=== PATIENT | male | born 1960 | race Caucasian/White ===

== ENCOUNTER 2019-01-10 22:30 | Observation (INO) | payer MEDICAID, SELFPAY ==
[2019-01-10 22:30] VITALS: BP 128/71; PULSE 97; RESP 18; TEMP 37.2; O2SAT 97; BMI 19.2
--- NOTE | 2019-01-10 23:35 | ED.VIS.GEN ---
History of Present Illness Chief Complaint: Abd Pain Narrative: This patient is a 58-year-old male who presents with abdominal pain. He has a history of Crohn's disease and prior bowel resections, appendectomy. His last surgery was in 2015. After that he states he was well controlled on Humira. However he had moved and has now been off of Humira since June. He complains of severe right sided abdominal pain for the past month. He was seen at an outside hospital 5 days ago and had a CT which showed intussusception. Transfer was recommended. However he had no one to take care of his cat so signed out AGAINST MEDICAL ADVICE. He complains of ongoing pain. He has chronic diarrhea which he states is been worse. He reports nausea without vomiting. He denies fevers. Past Medical History - Allergies and Home Meds Allergies/Adverse Reactions: Allergies acetaminophen [From Tylenol] Allergy (Verified 01/10/19 22:34) Other aspirin [ASA] Allergy (Verified 01/10/19 22:34) Nausea azathioprine [From Imuran] Allergy (Verified 01/10/19 22:34) Other azathioprine sodium [From Imuran] Allergy (Verified 01/10/19 22:34) Other Sulfa (Sulfonamide Antibiotics) Allergy (Verified 01/10/19 22:34) Rash Primary Care Physician: Care Physician,No Primary [NON-STAFF] - Past Medical History: - - Crohn's disease, bipolar Surgical History: appendectomy, - - Bowel resections Smoking Status: Current every day smoker Review of Systems All systems negative except as indicated General: Denies: Fever Cardiovascular: Denies: Chest pain Respiratory: Denies: Dyspnea Gastrointestinal: Reports: Abdominal pain, Nausea, Diarrhea Physical Exam Vital Signs/Narrative: Vital Signs Temp Pulse Resp BP Pulse Ox 01/10/19 22:30 98.9 F 97 18 128/71 H 97 General: Well nourished Head: Normocephalic Eyes: EOMI ENT: Moist mucous membranes Neck: Supple Cardiovascular: Regular rate, Regular rhythm Respiratory: No distress, CTA bilaterally Abdomen: Soft, - - Patient has diffuse abdominal tenderness which is worse in the mid right abdomen he has no guarding has no rebound Skin: Normal color Neurological: Alert Psychological: Normal affect Diagnostic/Tx/Re-eval Impressions Abdomen/Pelvis CT 01/11/19 23:34 IMPRESSION: Inflammation of small bowel prior to the ileocolic anastomosis in the right abdomen likely Crohn's exacerbation. There is some segment off target sign which may be the previously reported intussusception, however this can also be seen with substantial inflammation. Rectosigmoid inflammation/colitis/proctitis suspected. There is no abscess, collection, perforation or obstruction. Other nonacute findings as outlined above. Electronically Signed: Christiana Esposito MD at 2:31 EDT , Service support , 01/11/19 23:34 Abdomen/Pelvis WITH Contrast [CT] Stat Laboratory Results 01/10/19 01/10/19 23:53 23:53 WBC 6.8 RBC 4.46 L Hgb 12.9 L Hct 38.2 L MCV 85.7 MCH 28.9 MCHC 33.8 RDW 13.5 RDW Differential 41.5 Plt Count 298 MPV 9.0 Immature Gran % (Auto) 0.100 Neut % (Auto) 52.8 Lymph % (Auto) 32.9 [place]ack[place]ord % (Auto) 12.4 H Eos % (Auto) 1.2 Baso % (Auto) 0.6 Absolute Neuts (auto) 3.6 Absolute Lymphs (auto) 2.23 Total Counted Not Reportable Sodium 140 Potassium 3.3 L Chloride 106 Carbon Dioxide 28.0 Anion Gap 6 BUN 10 Creatinine 0.84 Estim Creat Clear Calc 81.90 Est GFR (MDRD) Af Amer 121 Est GFR (MDRD) Non-Af 100 BUN/Creatinine Ratio 11.8 Glucose 111 H Calcium 8.5 Total Bilirubin 0.20 AST 15 ALT 25 Alkaline Phosphatase 94 Total Protein 6.8 Albumin 2.9 L Globulin 3.9 Albumin/Globulin Ratio 0.7 L Lipase 76 - Medical Decision Making Patient was treated with IV fluids, Dilaudid, Zofran. He is resting comfortably on reevaluation. Laboratory studies are essentially unremarkable. CT of the abdomen and pelvis does show the above findings consistent with Crohn's exacerbation. CT was read as possible intussusception but findings and also just be seen with significant inflammation. I did speak to Dr. Rosas, general surgery on-call who agrees this does not appear to be an acute surgical issue. Patient was given IV Solu-Medrol and Zosyn and will be discussed with hospitalist for admission. ED Disposition - Plan for ED Patient: Disposition: [facility] Diagnosis: Exacerbation of Crohn's disease Referrals: Care Physician,No Primary [NON-STAFF] -
[2019-01-10] MEDS: HYDROmorphone 1 MG/ML Syringe IV (23:53)
[2019-01-10] MEDS: Ondansetron 4 MG/2 ML Vial IV (23:53)
[2019-01-10] MEDS: 0.9% Normal Saline 1,000 ML 1000 ML IV (23:53)
[2019-01-11 00:05] LABS: Absolute Lymphocyte Count 2.23 X10^3/ul (0.83-4.51); Absolute Neutrophil Count 3.6 X10^3/uL (2.0-7.7); Basophil# 0.04 X10^3/uL; Basophil% 0.6 % (0-1); Eosinophil# 0.08 X10^3/uL; Eosinophils% 1.2 % (0-5); Hematocrit 38.2 % (40-54); Hemoglobin 12.9 g/dl (13.0-16.5); Lymphocyte # 2.23 X10^3/ul (4.0); Lymphocyte % 32.9 % (19-41); Mean Corp Hgb Conc 33.8 g/gl (32-36); Mean Corpuscular Hgb 28.9 pg (27.0-32.0); Mean Corpuscular Volume 85.7 fL (80-94); Monocyte# 0.84 X10^3/uL; Monocyte% 12.4 % (0-10); Neutrophil # 3.58 X10^3/uL (2.7-7.7); Neutrophil % 52.8 % (47-70); Platelet Count 298 K/mm3 (150-450); RBC Distribution Width CV 13.5 % (11.6-14.6); RBC Distribution Width SD 41.5 fl (35.1-43.9); Red Blood Count 4.46 M/mm3 (4.6-6.2); White Blood Count 6.8 K/mm3 (4.4-11.0)
[2019-01-11 00:06] LABS: POSITIVE COUNT NO; POSITIVE DIFFERENTIAL NO; POSITIVE MORPHOLOGY NO
[2019-01-11 00:24] LABS: ALB/GLOB Ratio 0.7 RATIO (0.9-2.4); AST(SGOT) 15 U/L (15-37); Alanine Aminotransfer ALT/SGPT 25 U/L (16-61); Albumin, Serum 2.9 g/dL (3.2-5.0); Alkaline Phosphatase 94 U/L (45-117); Anion Gap 6 (5-15); BUN 10 mg/dL (7-18); BUN/Creat Ratio 11.8 RATIO (10-20); Calcium,Total 8.5 mg/dL (8.5-10.1); Chloride 106 mmol/L (98-107); Creatinine, Serum 0.84 mg/dL (0.70-1.30); EST Glomerular Filtration Rate 100 mL/min (>60); Est Glom Filt Rate - Afr Amer 121 mL/min (>60); Globulin 3.9 g/dL (2.2-4.2); Glucose 111 mg/dL (74-106); Lipase 76 U/L (73-393); Potassium 3.3 mmol/L (3.5-5.1); Protein, Total 6.8 g/dL (6.4-8.2); Sodium Level 140 mmol/L (136-145)
--- NOTE | 2019-01-11 03:02 | PCM.HP.STD ---
Problem List (1) Exacerbation of Crohn's disease Status: Acute Qualifiers: Digestive disease complication type: unspecified complication Qualified Code(s): K50.919 - Crohn's disease, unspecified, with unspecified complications (2) Bipolar disorder Status: Chronic Qualifiers: Active/Remission status: remission status unspecified Qualified Code(s): F31.9 - Bipolar disorder, unspecified (3) Tobacco abuse Status: Chronic (4) Crohn disease Status: Chronic Qualifiers: Gastrointestinal tract location: unspecified location History of Present Illness Date of Admission: 01/11/19 Chief Complaint: Abdominal pain The patient is a 58 y/o M w/ PMHx: Crohn's Disease s/p hx bowel obstruction and resection, Tobacco use, Bipolar disorder who presents to the [facility] ED on 01/11/19 with history of ongoing severe, 10 out of 10 right-sided abdominal pain for the last month with acute on chronic diarrhea prompting recent evaluation at outside hospital approximately [address] at that time concerning for intussusception although this may have possibly been due to the severity of the inflammation with transfer recommendation however he was unable to obtain some of the care for his pad and left AMA who now represents for medical evaluation secondary to ongoing pain and debility. 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 Work-up in the ED included T 98.9, heart rate 97, BP 120/71, respiratory rate 18, 97% on room air, CBC with WBC 6.8, hemoglobin 12.9, platelet 298 without market left shift, CMP with potassium 3.3, glucose 111 otherwise not marked appearing, lipase 76, CT abdomen pelvis with inflammation of the small bowel prior to the ileocolic anastomosis in the right abdomen likely Crohn's exacerbation with some segment off target sign which may be the previously reported intussusception however this is also seen with suspense serial inflammation, rectosigmoid inflammation, colitis, proctitis suspected, no abscess, collection, perforation or obstruction. In the ED patient administered normal saline, Zofran, Solu-Medrol 125 mg IV x1, Dilaudid 1 mg IV x1 in addition to Zosyn. General surgeon, Dr. [place] contacted per ED and amenable to care for this patient at [facility]. Past Medical History Past Medical History (Chronic Problems): Chronic Problems Bipolar disorder (Chronic) Tobacco abuse (Chronic) Crohn disease (Chronic) Allergies acetaminophen [From Tylenol] Allergy (Verified 01/10/19 22:34) Other aspirin [ASA] Allergy (Verified 01/10/19 22:34) Nausea azathioprine [From Imuran] Allergy (Verified 01/10/19 22:34) Other azathioprine sodium [From Imuran] Allergy (Verified 01/10/19 22:34) Other Sulfa (Sulfonamide Antibiotics) Allergy (Verified 01/10/19 22:34) Rash Home Medications: Ambulatory Orders Medication Instructions Recorded NK 01/10/19 Surgical History: appendectomy, - - Bowel resection, Hx perforation (lap x 2), appendectomy. Psychiatric History: Bipolar Lives: Alone Smoking Status: Current every day smoker Tobacco Use: Cigarettes - Patient currently decreased, 5 cigarettes daily he notes. Alcohol: None Drugs: None - *Family History Maternal History Items: Heart Disease Paternal History Items: Pulmonary Disease Review of Systems Constitutional: Reports: Anorexia, Malaise, Weakness, Fatigue. Denies: Chills, Fever, Weight Change HEENT: Denies: Head Aches, Sinus Congestion, Sinus Drainage Cardiovascular: Denies: Chest Pain, Palpitations Respiratory: Denies: Cough, Shortness of breath at rest, Sputum production Gastrointestinal: Reports: Abdominal Pain, Diarrhea. Denies: Nausea, Vomiting Genitourinary: Denies: Dysuria Musculoskeletal: Denies: Joint Pain, Joint Tenderness Skin: Denies: Rash, Wounds Neurological: Denies: Numbness, Tingling, Focal weakness Psychiatric: Denies: Anxiety, Depression, Homicidal Ideations, Suicidal Ideations Hematologic/ Lymphatic: Denies: Easy Bruising, Easy Bleeding VTE Information - Inpt Only VTE Present on Admission: No VTE Mechan Device Prophylaxis: SCD's VTE Pharm Prophylaxis ordered?: Yes Patient Problems: Active and Suspected Problems Exacerbation of Crohn's disease (Acute) Subjective: Seated upright in the ED bed, no acute distress, notes primarily discomfort with any palpation. Objective: Physical Examination: General: awake, alert, oriented x 3 and cooperative, seated upright in ED bed, does not currently appear in any distress but notable discomfort with palpation. Skin: normal color, turgor, no icterus, cyanosis. HEENT: AT/NC, EOMI, PERRLA, mildly dry MM, no carotid bruits or JVD noted. Lungs: CTA bilaterally, moderate effort, moderate decrease BL bases, no rales, ronchi or wheezing. Heart: Regular rate and rhythm; no gallop, rub audible. Abdomen: soft, thin habitus, right upper and lower quadrant discomfort with palpation, voluntary guarding, no rebound, hyperactive bowel sounds, difficult to assess HSM secondary to acute presentation and pain. Extremities: no cyanosis, clubbing, or edema. Neurological: patient awake, alert, oriented x 3; cognitive function intact; pupils equally reactive to light and accomodation; cranial nerves II-XII grossly normal, moving all 4 extremities, no focal deficits, strength severely global decrease secondary to acute presentation. Psychiatric: affect appears fatigued, no acute evidence of depressive or anxiety feelings. - Physical Exam Vital Signs Temp Pulse Resp BP Pulse Ox 98.9 F 97 18 128/71 H 97 01/10/19 22:30 01/10/19 22:30 01/10/19 22:30 01/10/19 22:30 01/10/19 22:30 Oxygen Delivery Method Room Air Weight: 130 lb Body Mass Index (BMI) 19.2 Finger Stick Blood Glucose 69 Laboratory Tests Past 24 Hrs 01/10/19 01/10/19 23:53 23:53 WBC 6.8 RBC 4.46 L Hgb 12.9 L Hct 38.2 L MCV 85.7 MCH 28.9 MCHC 33.8 RDW 13.5 RDW Differential 41.5 Plt Count 298 MPV 9.0 Immature Gran % (Auto) 0.100 Neut % (Auto) 52.8 Lymph % (Auto) 32.9 G[place]rie % (Auto) 12.4 H Eos % (Auto) 1.2 Baso % (Auto) 0.6 Absolute Neuts (auto) 3.6 Absolute Lymphs (auto) 2.23 Total Counted Not Reportable Sodium 140 Potassium 3.3 L Chloride 106 Carbon Dioxide 28.0 Anion Gap 6 BUN 10 Creatinine 0.84 Estim Creat Clear Calc 81.90 Est GFR (MDRD) Af Amer 121 Est GFR (MDRD) Non-Af 100 BUN/Creatinine Ratio 11.8 Glucose 111 H Calcium 8.5 Total Bilirubin 0.20 AST 15 ALT 25 Alkaline Phosphatase 94 Total Protein 6.8 Albumin 2.9 L Globulin 3.9 Albumin/Globulin Ratio 0.7 L Lipase 76 Assessment/Plan All Active Problems Exacerbation of Crohn's disease (Acute) The patient is a 58 y/o M w/ PMHx: Crohn's Disease s/p hx bowel obstruction and resection, Tobacco use, Bipolar disorder who presents to the [facility] ED on 01/11/19 with history of ongoing severe, 10 out of 10 right-sided abdominal pain for the last month with acute on chronic diarrhea. (1) Acute abdominal pain secondary to acute Crohn's flare: Work-up in the ED included T 98.9, heart rate 97, BP 120/71, respiratory rate 18, 97% on room air, CBC with WBC 6.8, hemoglobin 12.9, platelet 298 without market left shift, CMP with potassium 3.3, glucose 111 otherwise not marked appearing, lipase 76, CT abdomen pelvis with inflammation of the small bowel prior to the ileocolic anastomosis in the right abdomen likely Crohn's exacerbation with some segment off target sign which may be the previously reported intussusception however this is also seen with suspense serial inflammation, rectosigmoid inflammation, colitis, proctitis suspected, no abscess, collection, perforation or obstruction. Will admit to medical surgical floor, maintain on IV fluids, n.p.o. status, IV famotidine, IV Solu-Medrol, IV Zosyn therapy, trend CBC, BMP, continue close observation of patient in case of worsened abdominal process as high risk for obstruction and perforation as well as peritonitis, PRN pain and nausea regimen. General surgery, Dr. Rosas consulted. (2) Hypokalemia: Admission K+ 3.3, supplementation given, repeat level in AM. (3) Bipolar Disorder: Noted in prior history, not on regimen, defer to outpatient. (4) Tobacco Abuse: Encouraged cessation, inpatient consultation per RT, NR if desired. (5) GERD: IV famotidine. (6) DVT prophylaxis: SCD, Lovenox. Code Visit Inpatient E&M: 72056 Init Hosp L3
[2019-01-11] MEDS: MethylPREDNISolone 125 MG/2 ML Vial IV (03:10)
[2019-01-11 03:11] VITALS: BP 112/86; PULSE 72; RESP 21; O2SAT 98
[2019-01-11 04:10] VITALS: BP 104/66; PULSE 70; RESP 16; TEMP 36.4; O2SAT 96
[2019-01-11 04:17] VITALS: BMI 19.1
[2019-01-11 04:18] VITALS: BMI 19.1
[2019-01-11] MEDS: 0.9% Normal Saline 1,000 ML 125 ML IV ×3 (04:56→21:39)
[2019-01-11 05:11] LABS: Absolute Lymphocyte Count 1.35 X10^3/ul (0.83-4.51); Absolute Neutrophil Count 5.8 X10^3/uL (2.0-7.7); Basophil# 0.03 X10^3/uL; Basophil% 0.4 % (0-1); Eosinophil# 0.11 X10^3/uL; Eosinophils% 1.4 % (0-5); Hematocrit 39.3 % (40-54); Hemoglobin 13.2 g/dl (13.0-16.5); Lymphocyte # 1.35 X10^3/ul (4.0); Lymphocyte % 17.2 % (19-41); Mean Corp Hgb Conc 33.6 g/gl (32-36); Mean Corpuscular Hgb 28.8 pg (27.0-32.0); Mean Corpuscular Volume 85.8 fL (80-94); Mean Platelet Vol. 9.2 fl (6.2-12.0); Monocyte# 0.54 X10^3/uL; Monocyte% 6.9 % (0-10); Neutrophil # 5.81 X10^3/uL (2.7-7.7); POSITIVE COUNT NO; POSITIVE DIFFERENTIAL NO; POSITIVE MORPHOLOGY NO; Platelet Count 306 K/mm3 (150-450); RBC Distribution Width CV 13.5 % (11.6-14.6); RBC Distribution Width SD 41.9 fl (35.1-43.9); Red Blood Count 4.58 M/mm3 (4.6-6.2); White Blood Count 7.9 K/mm3 (4.4-11.0)
[2019-01-11 05:23] LABS: ALB/GLOB Ratio 0.7 RATIO (0.9-2.4); AST(SGOT) 14 U/L (15-37); Alanine Aminotransfer ALT/SGPT 23 U/L (16-61); Albumin, Serum 2.6 g/dL (3.2-5.0); Alkaline Phosphatase 78 U/L (45-117); Anion Gap 8 (5-15); BUN 9 mg/dL (7-18); Calcium,Total 8.2 mg/dL (8.5-10.1); Chloride 108 mmol/L (98-107); Creatinine, Serum 0.69 mg/dL (0.70-1.30); EST Glomerular Filtration Rate 125 mL/min (>60); Est Glom Filt Rate - Afr Amer 152 mL/min (>60); Estimated Creatinine Clearance 99.42 ml/min; Globulin 3.8 g/dL (2.2-4.2); Glucose 90 mg/dL (74-106); Potassium 3.6 mmol/L (3.5-5.1); Protein, Total 6.4 g/dL (6.4-8.2); Sodium Level 141 mmol/L (136-145)
[2019-01-11 10:15] VITALS: BP 107/70; PULSE 72; RESP 16; TEMP 36.2; O2SAT 97
--- NOTE | 2019-01-11 10:23 | PN_ITS ---
<Camille Amor - Last Filed: 01/11/19 10:29> Patient Problems: Active and Suspected Problems Exacerbation of Crohn's disease (Acute) Subjective: Patient seen and examined. Patient reports significant improvement in abdominal pain. Complains of mild abdominal tenderness with palpation, otherwise denies current abdominal pain. He reports he was on Humira for a long period of time greater than 1 year ago and had no issues with Crohn's however he reports his GI doctor changed this medication and he has had recurrent flare-ups since that time. - Physical Exam General: Alert, Oriented x3, Cooperative HEENT: Atraumatic, PERRLA, EOMI, Normocephalic Neck: Supple, No JVD, Negative Carotid Bruits Lungs: Clear to auscultation, Normal air movement Cardiovascular: Regular rate, Regular Rhythm, Normal S1, Normal S2, No murmurs Abdomen: Bowel Sounds Present, Soft, Non-Distended, Tender Extremities: No clubbing, No cyanosis, No edema, Capillary Refill Less than 3 Seconds Skin: No rashes, No breakdown Musculoskeletal: No Tenderness to Palpation of Joints or Extremities Neurological: Cranial nerves II-XII grossly intact, Neuro grossly intact Psych/Mental Status: Normal Affect, Appropriate Vital Signs Temp Pulse Resp BP Pulse Ox 97.6 F L 70 16 104/66 96 01/11/19 04:10 01/11/19 04:10 01/11/19 04:10 01/11/19 04:10 01/11/19 04:10 Oxygen Delivery Method Room Air Weight: 129 lb 10.109 oz Body Mass Index (BMI) 19.1 Finger Stick Blood Glucose 69 Intake and Output for Last 24 Hours 01/09/19 01/10/19 01/11/19 23:59 23:59 23:59 Intake Total 313 / 313 Balance 313 / 313 Laboratory Tests Past 24 Hrs 01/10/19 01/10/19 01/11/19 23:53 23:53 04:44 WBC 6.8 7.9 RBC 4.46 L 4.58 L Hgb 12.9 L 13.2 Hct 38.2 L 39.3 L MCV 85.7 85.8 MCH 28.9 28.8 MCHC 33.8 33.6 RDW 13.5 13.5 RDW Differential 41.5 41.9 Plt Count 298 306 MPV 9.0 9.2 Immature Gran % (Auto) 0.100 0.100 Neut % (Auto) 52.8 74.0 H Lymph % (Auto) 32.9 17.2 L [place] % (Auto) 12.4 H 6.9 Eos % (Auto) 1.2 1.4 Baso % (Auto) 0.6 0.4 Absolute Neuts (auto) 3.6 5.8 Absolute Lymphs (auto) 2.23 1.35 Total Counted Not Reportable Not Reportable Sodium 140 Potassium 3.3 L Chloride 106 Carbon Dioxide 28.0 Anion Gap 6 BUN 10 Creatinine 0.84 Estim Creat Clear Calc 81.90 Est GFR (MDRD) Af Amer 121 Est GFR (MDRD) Non-Af 100 BUN/Creatinine Ratio 11.8 Glucose 111 H Calcium 8.5 Phosphorus Magnesium Total Bilirubin 0.20 AST 15 ALT 25 Alkaline Phosphatase 94 Total Protein 6.8 Albumin 2.9 L Globulin 3.9 Albumin/Globulin Ratio 0.7 L Lipase 76 01/11/19 04:44 WBC RBC Hgb Hct MCV MCH MCHC RDW RDW Differential Plt Count MPV Immature Gran % (Auto) Neut % (Auto) Lymph % (Auto) [place] % (Auto) Eos % (Auto) Baso % (Auto) Absolute Neuts (auto) Absolute Lymphs (auto) Total Counted Sodium 141 Potassium 3.6 Chloride 108 H Carbon Dioxide 25.0 Anion Gap 8 BUN 9 Creatinine 0.69 L Estim Creat Clear Calc 99.42 Est GFR (MDRD) Af Amer 152 Est GFR (MDRD) Non-Af 125 BUN/Creatinine Ratio 13.0 Glucose 90 Calcium 8.2 L Phosphorus 3.0 Magnesium 2.0 Total Bilirubin 0.30 AST 14 L ALT 23 Alkaline Phosphatase 78 Total Protein 6.4 Albumin 2.6 L Globulin 3.8 Albumin/Globulin Ratio 0.7 L Lipase Medical Necessity - Tobacco Use Smoking Status: Current every day smoker Tobacco Use: Cigarettes Assessment/Plan All Active Problems Exacerbation of Crohn's disease (Acute) 1. Acute abdominal pain secondary to acute Crohn's flare-CT of abdomen and pelvis on admission shows inflammation of small bowel prior to the ileocolonic anastomosis in the right abdomen, likely Crohn's exacerbation. Possible previous intussusception. No abscess, perforation or obstruction. Dr. Rosas consulted. Continue IV fluids, IV famotidine, IV Solu-Medrol and IV Zosyn. Begin clear liquids, advance as tolerated if patient continues to have no further abdominal pain. Patient previously on Humira which was discontinued by primary GI June 2018. Patient reports he has had increased Crohn's exacerbations since that time. He reports he is currently on Remicade which is not working for him. Recommend further discussion with GI as outpatient. 2. Hypokalemia-resolved, trend BMP. 3. Bipolar disorder-not on regimen, recommend outpatient follow-up. 4. Tobacco dependence-encourage tobacco cessation. 5. GERD-IV famotidine. DVT prophylaxis-Lovenox subcu This patient was seen by KERON Norton under the supervision of Dr. Parmar. <Taran Parmar - Last Filed: 01/11/19 13:25> - Physical Exam Vital Signs Temp Pulse Resp BP Pulse Ox 97.2 F L 72 16 107/70 97 01/11/19 10:15 01/11/19 10:15 01/11/19 10:15 01/11/19 10:15 01/11/19 10:15 Oxygen Delivery Method Room Air Weight: 58.8 kg Body Mass Index (BMI) 19.1 Finger Stick Blood Glucose 69 Intake and Output for Last 24 Hours 01/09/19 01/10/19 01/11/19 23:59 23:59 23:59 Intake Total 1857 / 1857 Output Total 750 / 750 Balance 1107 / 1107 Laboratory Tests Past 24 Hrs 01/10/19 01/10/19 01/11/19 23:53 23:53 04:44 WBC 6.8 7.9 RBC 4.46 L 4.58 L Hgb 12.9 L 13.2 Hct 38.2 L 39.3 L MCV 85.7 85.8 MCH 28.9 28.8 MCHC 33.8 33.6 RDW 13.5 13.5 RDW Differential 41.5 41.9 Plt Count 298 306 MPV 9.0 9.2 Immature Gran % (Auto) 0.100 0.100 Neut % (Auto) 52.8 74.0 H Lymph % (Auto) 32.9 17.2 L [place] % (Auto) 12.4 H 6.9 Eos % (Auto) 1.2 1.4 Baso % (Auto) 0.6 0.4 Absolute Neuts (auto) 3.6 5.8 Absolute Lymphs (auto) 2.23 1.35 Total Counted Not Reportable Not Reportable Sodium 140 Potassium 3.3 L Chloride 106 Carbon Dioxide 28.0 Anion Gap 6 BUN 10 Creatinine 0.84 Estim Creat Clear Calc 81.90 Est GFR (MDRD) Af Amer 121 Est GFR (MDRD) Non-Af 100 BUN/Creatinine Ratio 11.8 Glucose 111 H Calcium 8.5 Phosphorus Magnesium Total Bilirubin 0.20 AST 15 ALT 25 Alkaline Phosphatase 94 Total Protein 6.8 Albumin 2.9 L Globulin 3.9 Albumin/Globulin Ratio 0.7 L Lipase 76 01/11/19 04:44 WBC RBC Hgb Hct MCV MCH MCHC RDW RDW Differential Plt Count MPV Immature Gran % (Auto) Neut % (Auto) Lymph % (Auto) [place] % (Auto) Eos % (Auto) Baso % (Auto) Absolute Neuts (auto) Absolute Lymphs (auto) Total Counted Sodium 141 Potassium 3.6 Chloride 108 H Carbon Dioxide 25.0 Anion Gap 8 BUN 9 Creatinine 0.69 L Estim Creat Clear Calc 99.42 Est GFR (MDRD) Af Amer 152 Est GFR (MDRD) Non-Af 125 BUN/Creatinine Ratio 13.0 Glucose 90 Calcium 8.2 L Phosphorus 3.0 Magnesium 2.0 Total Bilirubin 0.30 AST 14 L ALT 23 Alkaline Phosphatase 78 Total Protein 6.4 Albumin 2.6 L Globulin 3.8 Albumin/Globulin Ratio 0.7 L Lipase Assessment/Plan This patient was seen in conjunction with KERON Nroton . I have independently interviewed and examined the patient and reviewed pertinent historical, laboratory, and other data. Please refer to KERON Norton note for details of this patient's presentation, findings, and recommendations. I have reviewed KERON Norton note and concur with documented findings. In brief, patient is a 58-year-old gentleman with past medical history segment for Crohn's disease who is been off his Humira for almost 6-month presented with abdominal discomfort and assessment of acute Crohn's exacerbation made admitted to regular nursing for further management Physical Examination: GENERAL: cooperative HEENT: Atraumatic; EYES; Anicteric, Normal Conjunctiva NECK; supple, normal thyroid, RESPIRATORY: Diminished to auscultation CARDIOVASCULAR: Regular S1 S2, GI: soft, non-tender, normoactive bowel sounds, : No Renal angle tenderness; NEURO: Awake; no lateralizing signs. SKIN: No Rash PSYCH; Normal affect Assessment: 1. Crohn's disease with acute exacerbation 2. Hypokalemia 3. Bipolar disorder 4. Tobacco dependence 5. GERD Recommendations: 1. I have discussed the results of my overview and impressions with the patient 2. Options for management were reviewed Code Visit Inpatient E&M: 61845 Subs Hosp L2
[2019-01-11] MEDS: Enoxaparin 40 MG/0.4 ML Syringe SC (10:26)
--- NOTE | 2019-01-11 11:30 | CASEMGMT ---
RN CM PUTTY MIXER CM to room to meet with patient for initial transition planning/care coordination assessment. RN WILNER introduced self and role at [facility]. Pt voices understanding and consents to assessment at this time. Pt resting in bed in no distress at this time. Pt is A/O at this time and answers all questions appropriately. Care providers, pharmacy, and demographics verified/updated at this time. PCP: Seema Pascual in [place] Specialists: Stevie Quinn @ [facility] [place]--gastroenterology. Pt states wishes to start going to a different GI specialist. Printed/given pt list of gastroenterologists from [employer] website. Preferred Pharmacy: [facility] Insurance: [employer] Prescription Benefit: Yes Living Will/HPOA: States he has a LW but does not have a HCPOA. Pt is interested in more information and with talking with SW to complete paperwork. Given AD info packet and Loss Control Technician [employer] Card. Pt made aware SW will be made aware he would like to talk with her while he is at [facility] and he was also made aware that if he chooses to meet with SW as an out-pt he can call in to make an appt. Pt voices understanding. RERE Diaz, notified. LNOK: Mother Lori Melo Living Arrangements: Lives alone in a 2nd-floor apt. Denies difficulty with stairs. Independent with ADL's. Transportation: Pt states he does not drive. He states most places he needs to go to he walks to. [employer] transportation for appts. States unsure who will drive him home on d/c. States his neighbors may be able to come pick him up or he may call a taxi. Pt made aware if he is unable to find a ride home, that the hospital can issue a voucher for a taxi. Instructed pt to inform staff if he needs this. Pt voices understanding. DME: Denies using any DME and denies needs. HHC/SNF: No history of either and pt denies needs. No needs identified. Pt wishes to return home and states has no concerns with going home at time of discharge. Pt states does not drink ETOH but does smoke about 5 cigarettes a day. Pt states, I could quit cold turkey if I wanted to. Pt made aware of Tobacco Cessation program and seemed interested. He was provided with Rac card. Pt voices appreciation. CM to follow for discharge planning/needs. Pt voices no further concerns/needs at this time. Advised pt to ask for CM if any further questions/concerns/needs arise. Voices understanding. PLAN: Home Samantha CHE RN CM
--- NOTE | 2019-01-11 12:08 | CASEMGMT ---
Addendum entered by Emily Cuevas 01/11/19 15:13: SW did attempt again to speak w/pt regarding POA papers, he is still asleep. ALINE Reaves Original Note: Addendum entered by Emily Cuevas 01/11/19 13:38: SW attempted to speak w/pt again this afternoon regarding POA forms, pt is asleep. SW will ask weekend SW to see pt as time allows. ALINE Reaves Original Note: SW met w/pt briefly in regard to completing POA. Pt is feeling too tired to complete the form at present, but may be up for it later. SW explained he could come back after discharge to complete, can make appt w/SW. Pt states transportation is an issue for him. SW explained will check back w/him later. SW will follow up in a couple hours. ALINE Reaves
[2019-01-11] MEDS: 0.9% NaCl Peripheral Flush Adult/Peds IV ×2 (14:09→15:47)
[2019-01-11 15:41] VITALS: BP 102/62; PULSE 69; RESP 19; TEMP 36.5; O2SAT 98
[2019-01-11] MEDS: Morphine 2 MG/ML Syringe IV ×2 (15:47→21:53)
[2019-01-11 21:34] VITALS: BP 113/68; PULSE 67; RESP 16; TEMP 36.6; O2SAT 98
--- NOTE | 2019-01-11 23:34 | CT_ITS ---
STUDY: CT ABDOMEN AND PELVIS WITH CONTRAST REASON FOR EXAM: Male, 58 years old. Abdominal pain and diarrhea, nausea. Reportedly patient had CT abdomen the hospital 5 days ago and stated it showed intussusception. History of Crohn's disease with bowel resection, kidney stones, small bowel obstruction and appendectomy. RADIATION DOSAGE (If Supplied By Facility): CTDIvol = ( 13.00 ) mGy, DLP = ( 305.95 ) mGycm TECHNIQUE: Transaxial 2.5 mm images were obtained from the dome of the diaphragm to the symphysis pubis with oral contrast. 100ML IV/Oral Isovue 300 was administered. Sagittal and coronal images were reconstructed. Individualized dose optimization techniques were used for this CT. COMPARISON: CT abdomen pelvis 01/27/2014 FINDINGS: The visualized lung bases are unremarkable. The visualized portions of the heart are within normal limits. Stable low-attenuation 0.5 cm in the liver image 29 series 3. Normal gallbladder and extrahepatic biliary system. There are multiple benign calcified granulomata of the spleen and liver. Normal pancreas. Normal bilateral adrenal glands. Normal right kidney. Normal left kidney. Normal visualized stomach. Multiple small bowel surgical changes. There is wall thickening of presumed small bowel prior to the ileocolic anastomosis in the right lateral abdomen. There is indistinct contour, fat stranding. There is one segment off the inflamed small bowel which has central luminal opacification likely oral contrast, followed by low-attenuation and enhancing wall. Image 103 series 3, image 48 series 601, image 31 series 602. Her adjacent enlarged lymph nodes. Mucosal enhancement of the rectosigmoid colon with increased adjacent vascularity, the colonic wall is probably thickened, there is indistinct contour. The visualized transverse and descending colon appear normal. The appendix is surgically absent. There is mild atherosclerotic calcification of the abdominal aorta pelvic artery, without a demonstrated aneurysm. Normal inferior vena cava. Normal retroperitoneum. Normal urinary bladder. There is enlargement and calcification of the prostate gland. Normal abdominal wall. Normal osseous structures. CT/Abdomen/Pelvis WITH Contrast IMPRESSION: Inflammation of small bowel prior to the ileocolic anastomosis in the right abdomen likely Crohn's exacerbation. There is some segment off target sign which may be the previously reported intussusception, however this can also be seen with substantial inflammation. Rectosigmoid inflammation/colitis/proctitis suspected. There is no abscess, collection, perforation or obstruction. Other nonacute findings as outlined above. Electronically Signed: Christiana Esposito MD at 2:31 EDT , Service support ,
[2019-01-12 03:30] VITALS: BP 96/43; PULSE 63; RESP 16; TEMP 36.6; O2SAT 97
[2019-01-12] MEDS: 0.9% Normal Saline 1,000 ML 125 ML IV (05:41)
--- NOTE | 2019-01-12 08:27 | PCM.PN.SRG ---
Patient Problems: Active and Suspected Problems Exacerbation of Crohn's disease (Acute) Subjective: Patient with known's Crohn's disease presented with Crohn's flareup. Has been on steroids for 2 days has shown significant improvement in abdominal pain. Never has had a white count. Objective: Abdomen is soft and nontender - Physical Exam Vital Signs Temp Pulse Resp BP Pulse Ox 97.8 F 63 16 96/43 L 97 01/12/19 03:30 01/12/19 03:30 01/12/19 03:30 01/12/19 03:30 01/12/19 03:30 Oxygen Delivery Method Room Air Weight: 129 lb 10.109 oz Body Mass Index (BMI) 19.1 Finger Stick Blood Glucose 69 Intake and Output for Last 24 Hours 01/10/19 01/11/19 01/12/19 23:59 23:59 23:59 Intake Total 1857 / 1857 2652 / 2652 Output Total 750 / 750 Balance 1107 / 1107 2652 / 2652 Medical Necessity - Tobacco Use Smoking Status: Current every day smoker Tobacco Use: Cigarettes Assessment/Plan All Active Problems Exacerbation of Crohn's disease (Acute) No surgical interventions are needed at this time. Patient she will follow back up with his principal system software engineer. No reason to follow-up with me at this time.
--- NOTE | 2019-01-12 08:35 | PCM.DC ---
- Discharge Diagnoses Current Active Problems: Current Active and Chronic Problems Exacerbation of Crohn's disease (Acute) Bipolar disorder (Chronic) You will use the following diet at home:: No restrictions Discharge Activity: Return to Normal Activity Call your doctor if you observe: Shortness of breath, Dizziness, Fainting spells, Chest pain Allergies/Adverse Reactions: Allergies acetaminophen [From Tylenol] Allergy (Verified 01/10/19 22:34) Other aspirin [ASA] Allergy (Verified 01/10/19 22:34) Nausea azathioprine [From Imuran] Allergy (Verified 01/10/19 22:34) Other azathioprine sodium [From Imuran] Allergy (Verified 01/10/19 22:34) Other Sulfa (Sulfonamide Antibiotics) Allergy (Verified 01/10/19 22:34) Rash Medications to take at Discharge Adalimumab [Humira] 40 mg SQ Q14D 01/11/19 Prednisone See Taper PO DAILY #30 tablet 01/12/19 The following prescriptions were given: Prednisone See Taper PO DAILY #30 tablet Primary Care Physician: Care Physician,No Primary [NON-STAFF] - Please follow up with your Primary Care Physician in: 1 Week Test Results: Test results from this visit will be discussed in further detail at your follow-up appointment, if applicable. Please Follow Up With: Primary Solar Design Engineer When: 1 Week Proposed Discharge Date: 01/12/19
--- NOTE | 2019-01-12 08:45 | DS.PCM_ITS ---
<Camille Amor - Last Filed: 01/12/19 08:45> Discharge Date and Diagnosis Date of Admission: 01/11/19 Date of Discharge: 01/12/19 - Primary Discharge Diagnosis Active and Suspected Problems 1. Acute abdominal pain secondary to acute Crohn's flare 2. Hypokalemia-resolved 3. Bipolar disorder 4. Tobacco dependence 5. GERD - Secondary Discharge Diagnosis Chronic Problems Bipolar disorder (Chronic) Tobacco abuse (Chronic) Crohn disease (Chronic) Hospital Course and Treatment Imaging Results: Diagnostic Data Abdomen/Pelvis CT 01/11/19 23:34 IMPRESSION: Inflammation of small bowel prior to the ileocolic anastomosis in the right abdomen likely Crohn's exacerbation. There is some segment off target sign which may be the previously reported intussusception, however this can also be seen with substantial inflammation. Rectosigmoid inflammation/colitis/proctitis suspected. There is no abscess, collection, perforation or obstruction. Other nonacute findings as outlined above. Electronically Signed: Christiana Esposito MD at 2:31 EDT , Service support , Dr. Rosas- General surgery Operations: None Procedures: None Summary of Care Provided: The patient is a 58 year old M admitted 01/11/2019 due to abdominal pain. 1. Acute abdominal pain secondary to acute Crohn's flare-CT of abdomen and pelvis on admission showed inflammation of small bowel prior to the ileocolonic anastomosis in the right abdomen, likely Crohn's exacerbation. Possible previous intussusception. No abscess, perforation or obstruction. Dr. Rosas consulted during admission. No surgical intervention needed. Patient treated with IV Solu-Medrol and IV Zosyn during admission. Discharged on prednisone taper. Discontinue further antibiotics given no abscess on CT or further evidence of infection. Patient previously on Humira which was discontinued by primary GI June 2018. Patient reports he has had increased Crohn's exacerbations since that time. He reports he is currently on Remicade which is not working for him. Recommend further discussion with GI as outpatient. Do feel patient should return back on Humira, recommend follow-up with GI in 1 week. Follow-up with primary care provider in 1 week as well. 2. Hypokalemia-resolved. 3. Bipolar disorder-not on regimen, recommend outpatient follow-up. 4. Tobacco dependence-encourage tobacco cessation. 5. GERD-not on regimen, recommend PPI if recurrent symptoms. General: Alert, Oriented x3, Cooperative HEENT: Atraumatic, PERRLA, EOMI, Normocephalic Neck: Supple, No JVD, Negative Carotid Bruits Lungs: Clear to auscultation, Normal air movement Cardiovascular: Regular rate, Regular Rhythm, Normal S1, Normal S2, No murmurs Abdomen: Bowel Sounds Present, Soft, Non-Distended, Tender Extremities: No clubbing, No cyanosis, No edema, Capillary Refill Less than 3 Seconds Skin: No rashes, No breakdown Musculoskeletal: No Tenderness to Palpation of Joints or Extremities Neurological: Cranial nerves II-XII grossly intact, Neuro grossly intact Psych/Mental Status: Normal Affect, Appropriate Patient seen and examined prior to discharge. Physical assessment as noted above. Patient is stable for discharge with follow up recommendations as noted above. This patient was seen by KERON Norton under the supervision of Dr. Parmar. - Physical Exam Vital Signs Temp Pulse Resp BP Pulse Ox 97.8 F 63 16 96/43 L 97 01/12/19 03:30 01/12/19 03:30 01/12/19 03:30 01/12/19 03:30 01/12/19 03:30 Oxygen Delivery Method Room Air Weight: 129 lb 10.109 oz Body Mass Index (BMI) 19.1 Finger Stick Blood Glucose 69 Intake and Output for Last 24 Hours 01/10/19 01/11/19 01/12/19 23:59 23:59 23:59 Intake Total 1857 / 1857 2652 / 2652 Output Total 750 / 750 Balance 1107 / 1107 2652 / 2652 Discharge Diet: No Restrictions Discharge Activity: Return to Normal Activity Call your doctor if you observe: Shortness of breath, Dizziness, Fainting spells, Chest pain Home Medications: Medications to take at Discharge Adalimumab [Humira] 40 mg SQ Q14D 01/11/19 Prednisone See Taper PO DAILY #30 tablet 01/12/19 Following Prescrptions Were Given to Patient: Prednisone See Taper PO DAILY #30 tablet Primary Care Physician: Care Physician,No Primary [NON-STAFF] - Please follow up with your Primary Care Physician in: 1 Week Please Follow Up With: Primary Corporate Accountant When: 1 Week Disposition: Home Minutes spent on discharge:: 35 Patient Condition:: Stable Medical Necessity - Tobacco Use Smoking Status: Current every day smoker Tobacco Use: Cigarettes Meaningful Use Info Meaningful Use Diagnoses (Choose all that apply): None applicable <Taran Parmar - Last Filed: 01/12/19 08:53> Discharge Date and Diagnosis - Secondary Discharge Diagnosis Chronic Problems Bipolar disorder (Chronic) Tobacco abuse (Chronic) Crohn disease (Chronic) Hospital Course and Treatment Summary of Care Provided: This patient was seen in conjunction with KERON Norton . I have independently interviewed and examined the patient and reviewed pertinent historical, laboratory, and other data. Please refer to KERON Norton note for details of this patient's presentation, findings, and recommendations. I have reviewed KERON Norton note and concur with documented findings. In brief, patient is a 58-year-old gentleman with past medical history segment for Crohn's disease who is been off his Humira for almost 6-month presented with abdominal discomfort and assessment of acute Crohn's exacerbation made admitted to regular nursing for further management Physical Examination: GENERAL: cooperative HEENT: Atraumatic; EYES; Anicteric, Normal Conjunctiva NECK; supple, normal thyroid, RESPIRATORY: Diminished to auscultation CARDIOVASCULAR: Regular S1 S2, GI: soft, non-tender, normoactive bowel sounds, : No Renal angle tenderness; NEURO: Awake; no lateralizing signs. SKIN: No Rash PSYCH; Normal affect Assessment: 1. Crohn's disease with acute exacerbation 2. Hypokalemia 3. Bipolar disorder 4. Tobacco dependence 5. GERD Hospital course: As documented above - Physical Exam Vital Signs Temp Pulse Resp BP Pulse Ox 97.8 F 63 16 96/43 L 97 01/12/19 03:30 01/12/19 03:30 01/12/19 03:30 01/12/19 03:30 01/12/19 03:30 Oxygen Delivery Method Room Air Weight: 58.8 kg Body Mass Index (BMI) 19.1 Finger Stick Blood Glucose 69 Intake and Output for Last 24 Hours 01/10/19 01/11/19 01/12/19 23:59 23:59 23:59 Intake Total 1857 / 1857 2652 / 2652 Output Total 750 / 750 Balance 1107 / 1107 2652 / 2652 Code Visit Inpatient E&M: [id number] Disch Hosp
[2019-01-12 08:57] VITALS: BP 106/67; PULSE 63; RESP 16; TEMP 36.6; O2SAT 99
--- NOTE | 2019-01-12 08:59 | NURSING ---
dr crespo in this am and dr. villasenor. pt dc'd to home. iv dc'd with cannula intact. pt now apologizing for previous behavior. asking if any vans available to take pt home. explained that van does not run on weekends and would have to pay for taxi. pt informed that needs to call friends for ride [place]. broker in charge aware. pt up in bed eating reg diet
== END 2019-01-12 09:19 | disposition home or self-care (01) | DRG 245 ==
LOC: ED 01-11 02:56 → PCU 01-11 07:02
PROVIDERS: Admitting Provider Family Medicine; Emergency Provider Emergency Medicine; Family Provider Family Medicine; PCP Family Medicine; Visit Provider Internal Medicine
DX: K50.90 Crohn's disease, unspecified, without complications (principal); E87.6 Hypokalemia; K21.9 Gastro-esophageal reflux disease without esophagitis; F31.9 Bipolar disorder, unspecified; F17.210 Nicotine dependence, cigarettes, uncomplicated; Z90.49 Acquired absence of other specified parts of digestive tract; Z79.899 Other long term (current) drug therapy
CPT/HCPCS: 36415; 74177; 80053; 83690; 83735; 84100; 85025; 99218; 99285; 99406; J7030; Q9967; A4216; G0378; J2405; J3490